=== PATIENT | female | born 1970 | race Two or more races ===

== ENCOUNTER → 2021-11-12 | Day surgery (SDC) | payer OTHER ==
[2021-11-11 09:17] LABS: Basophils # (auto) 0 10 ^3/uL (0-0.2); Basophils % (auto) 0.9 % (0.0-2.0); Eosinophils # (auto) 0.3 10 ^3/uL (0-0.8); Eosinophils % (auto) 7.9 % (0.0-7.0); Hematocrit 37.8 % (36.0-46.0); Hemoglobin 12.5 g/dL (12.2-16.2); Lymphocytes # (auto) 2.1 10 ^3/uL (0.4-5.4); Lymphocytes % (auto) 50.6 % (10.0-50.0); Mean Corpuscular Hemoglobin 28.2 pg (28.0-32.0); Mean Corpuscular Hgb Conc. 33.2 g/dL (32.0-36.0); Monocytes # (auto) 0.4 10 ^3/uL (0-1.3); Monocytes % (auto) 10.4 % (0.0-12.0); Neutrophils # (auto) 1.3 10 ^3/uL (1.6-8.6); Neutrophils % (auto) 30.2 % (37.0-80.0); Nucleated Red Blood Cells % 0.1 %; Red Blood Cells 4.44 10^6/uL (4.0-5.20); Red Cell Distribution Width 14.1 % (11.8-14.3); White Blood Cell 4.2 10^3/uL (4.4-10.8)
[2021-11-11 09:23] LABS: Urine Bacteria FEW /hpf (None Seen); Urine Blood Negative /uL (Negative); Urine Mucus MANY (None Seen); Urine Specific Gravity 1.028 (1.001-1.035); Urine WBC 5 /hpf (0 - 5)
[2021-11-11 09:31] LABS: INR 1.04 (0.9-1.15)
[2021-11-11 10:12] LABS: Albumin 3.5 g/dL (3.4-5.0); Potassium 3.9 mmol/L (3.5-5.1)
[2021-11-11 10:27] LABS: BUN/Creatinine Ratio 15.7; Bilirubin, Total 0.3 mg/dL (0.2-1.0)
[~2021-11-12] VITALS: Ht 165.1 cm; Wt 106.6 kg
[~2021-11-12] MED LIST: BUPIVACAINE 0.25% INJ 50ML VIAL ONE; EREN140I SC; FENT50DI2 TD; HYDR1TAB97 PO; LIDOCAINE W/ EPINEPHRINE 2% INJ 20ML VIAL ONE; META-24 PO; MIDAZOLAM HCL 2MG/2ML 2ml VIAL (1mg/ml) ONE; NALOXONE HCL 0.4 MG/ML VIAL ONE; ONDANSETRON HCL 4 MG/2 ML VIAL IV PRN; PREG200C19 PO; PROPOFOL 10 MG/ML 20 ML IV ONE; RIME75TA PO; SUMA100T15 PO; VANCOMYCIN HCL 1000 MG VL ONE; ceFAZolin 1GM/50ML 100 ML IV ONE; fentaNYL CITRATE 5 ML ONE
[2021-11-12 10:40] VITALS: BP 148/80
== END | disposition home or self-care (01) ==
LOC: SUR 07:35
PROVIDERS: ATTEND Anesthesiology Pain Medicine
DX: G90.521 Complex regional pain syndrome I of right lower limb (principal); M51.16 Intervertebral disc disorders with radiculopathy, lumbar region; M51.36 Other intervertebral disc degeneration, lumbar region; J45.909 Unspecified asthma, uncomplicated; M19.90 Unspecified osteoarthritis, unspecified site; G43.909 Migraine, unspecified, not intractable, without status migrainosus; Z98.41 Cataract extraction status, right eye; Z98.42 Cataract extraction status, left eye; Z98.890 Other specified postprocedural states; Z79.899 Other long term (current) drug therapy; Z88.8 Allergy status to other drugs, medicaments and biological substances; Z20.822 Contact with and (suspected) exposure to COVID-19
CPT/HCPCS: 36415; 63685; 72100; 76000; 80053; 81001; 84702; 85025; 85610; 85730; 87086; 95972; A4215; C1897; J0690; J2250; J2310; J2704; J3010; J3370; J3490; U0003

== ENCOUNTER → 2022-03-11 | Day surgery (SDC) | payer OTHER ==
[2022-03-08 12:33] LABS: Basophils # (auto) 0 10 ^3/uL (0-0.2); Eosinophils # (auto) 0.2 10 ^3/uL (0-0.8); Eosinophils % (auto) 3.6 % (0.0-7.0); Hematocrit 38.7 % (36.0-46.0); Hemoglobin 13.1 g/dL (12.2-16.2); Lymphocytes # (auto) 1.9 10 ^3/uL (0.4-5.4); Mean Corpuscular Hemoglobin 28.9 pg (28.0-32.0); Mean Corpuscular Hgb Conc. 33.8 g/dL (32.0-36.0); Mean Corpuscular Volume 85.6 fL (80.0-100.0); Monocytes # (auto) 0.4 10 ^3/uL (0-1.3); Monocytes % (auto) 8.3 % (0.0-12.0); Neutrophils # (auto) 2.5 10 ^3/uL (1.6-8.6); Neutrophils % (auto) 49.1 % (37.0-80.0); Nucleated Red Blood Cells % 0.1 %; Red Blood Cells 4.52 10^6/uL (4.0-5.20); Red Cell Distribution Width 13.7 % (11.8-14.3); White Blood Cell 5.1 10^3/uL (4.4-10.8)
[2022-03-08 12:48] LABS: INR 1.05 (0.9-1.15); Partial Thromboplastin Time 26.4 sec (23.6-33.0)
[2022-03-08 13:02] LABS: Albumin 3.6 g/dL (3.4-5.0); BUN/Creatinine Ratio 13.3; Potassium 3.7 mmol/L (3.5-5.1)
[2022-03-08 13:05] LABS: Bilirubin, Total 0.5 mg/dL (0.2-1.0); Total Protein 7.5 g/dL (6.4-8.2)
[2022-03-08 13:30] LABS: Urine Bacteria FEW /hpf (None Seen); Urine Blood Negative /uL (Negative); Urine Mucus FEW (None Seen); Urine Specific Gravity 1.035 (1.001-1.035); Urine WBC 2 /hpf (0 - 5)
[~2022-03-11] VITALS: Ht 165.1 cm; Wt 104.3 kg
[~2022-03-11] MED LIST changes: -BUPIVACAINE 0.25% INJ 50ML VIAL ONE; +BUPIVACAINE W/ EPINEPH 0.25% INJ 50ML MDV ONE; +GLYCOPYRROLATE 0.2 MG/ML 1ML VIAL ONE; +HYDROmorphone HCL 2 MG/ML VL/or syr IV PRN; +HYDROmorphone HCL 2 MG/ML VL/or syr ONE; -MIDAZOLAM HCL 2MG/2ML 2ml VIAL (1mg/ml) ONE; +MORPHINE SULF PF 5 MG/10 ML VIAL ONE; -NALOXONE HCL 0.4 MG/ML VIAL ONE; +ONDANSETRON HCL 4 MG/2 ML VIAL ONE; +fentaNYL CITRATE 100 MCG/2 ML VL ONE; -fentaNYL CITRATE 5 ML ONE
[2022-03-11 09:58] VITALS: BP 104/57
== END | disposition home or self-care (01) ==
LOC: SUR 07:01
PROVIDERS: ATTEND Anesthesiology Pain Medicine
DX: G90.511 Complex regional pain syndrome I of right upper limb (principal); M51.16 Intervertebral disc disorders with radiculopathy, lumbar region; M51.36 Other intervertebral disc degeneration, lumbar region; J45.909 Unspecified asthma, uncomplicated; M19.90 Unspecified osteoarthritis, unspecified site; E66.9 Obesity, unspecified; Z90.89 Acquired absence of other organs; Z98.890 Other specified postprocedural states; Z79.899 Other long term (current) drug therapy; Z90.49 Acquired absence of other specified parts of digestive tract; Z98.51 Tubal ligation status; Z82.61 Family history of arthritis; Z20.822 Contact with and (suspected) exposure to COVID-19; Z68.38 Body mass index [BMI] 38.0-38.9, adult
CPT/HCPCS: 36415; 63650; 63685; 80053; 81001; 81025; 84702; 85025; 85610; 85730; 95972; A4215; C1787; C1820; C1897; J0690; J1170; J2270; J2405; J2704; J3010; J3370; U0003; 76000